=== PATIENT | female | born 1945 | race Caucasian/White ===

== ENCOUNTER → 2016-09-10 | Outpatient (CLI) | payer BC ==
[~2016-09-10] MED LIST: ATEN-173 PO; CALC500C3 PO; CALC600T9 PO; ERGO500037 PO; LEVO50TA6 PO; MULT-506 PO; SIMV20TA2 PO; VITAMIN D3 PO
== END | disposition home or self-care (01) ==
LOC: C.LAB1850 11:52
PROVIDERS: ATTEND Obstetrics & Gynecology
DX: Z80.41 Family history of malignant neoplasm of ovary (principal)

== ENCOUNTER → 2017-01-18 | Outpatient (CLI) | payer BC ==
[2017-01-18 12:44] LABS: ALT/SGPT 24 U/L (12-78); BLOOD UREA NITROGEN 13 mg/dl (7-18); BUN/CREATININE RATIO 14.5 (10-20); CARBON DIOXIDE 25 mmol/L (21-32); CHLORIDE 107 mmol/L (98-107); CHOLESTEROL 173 mg/dl (0-200); CREATININE 0.91 mg/dl (0.60-1.20); GLUCOSE 90 mg/dl (70-99); SODIUM 142 mmol/L (136-145); TRIGLYCERIDES 104 mg/dl (0-150); VERY LOW DENSITY LIPOPROT CALC 21 mg/dl
[2017-01-18 12:46] LABS: CALCIUM 9.3 mg/dl (8.5-10.1)
[2017-01-18 12:59] LABS: ALKALINE PHOSPHATASE 78 U/L (45-117); AST/SGOT 23 U/L (15-37); CHOLESTEROL/HDL RATIO 2.9; HDL CHOLESTEROL 60 mg/dl; LDL CHOLESTEROL CALCULATED 92 mg/dl
--- NOTE | 2017-01-22 11:13 | CODING QUERY MEDICAL NECESSITY ---
SUPPORTING DIAGNOSIS NEEDED A supporting diagnosis is required for the test/procedure performed on this patient in order for us to be reimbursed by the patient's insurance. Please provide a supporting diagnosis for the following test/procedure listed below next to the test name along with your signature. *If there is no additional diagnosis for this patient that would support the following test/procedure please document that below next to the test/procedure. Test(s)/Procedure(s) that require a supporting diagnosis: * VITAMIN D, 25-HYDROXY DIAGNOSIS: Provider Signature: Date: Thank you Margarita Bird [employer] Information Management Once completed, please kindly fax back to [phone] For questions please call [phone]
== END | disposition home or self-care (01) ==
LOC: C.LABPVFM 07:54
PROVIDERS: ATTEND Family Medicine
DX: I10 Essential (primary) hypertension (principal); E78.5 Hyperlipidemia, unspecified; E03.9 Hypothyroidism, unspecified; Z13.21 Encounter for screening for nutritional disorder; E55.9 Vitamin D deficiency, unspecified; M85.80 Other specified disorders of bone density and structure, unspecified site

== ENCOUNTER 2017-01-26 18:37 | Emergency (ER) | payer BC ==
[~2017-01-26] VITALS: Ht 154.9 cm; Wt 69.5 kg
[~2017-01-26 18:37] MED LIST changes: -CALC500C3 PO; -ERGO500037 PO; -VITAMIN D3 PO
[2017-01-26 18:44] VITALS: Ht 154.9 cm; Wt 69.5 kg
[2017-01-26] MEDS ORDERED: CALC500C3 PO (19:24)
[2017-01-26] MEDS ORDERED: ERGO500037 PO (19:24)
[2017-01-26] MEDS ORDERED: SODIUM CHLORIDE 0.9% 500ML 500 ML IV STA (19:31)
[2017-01-26 19:48] LABS: BASO % 0.5 %; BASO ABS # 0.04 K/uL (0-0.2); COMPLETE YES; EOS % 0.7 %; HEMATOCRIT 47.4 % (37-47); IG% 0.1 %; LYMPH % 29.8 %; LYMPH ABS # 2.58 K/uL (1.2-3.4); MEAN CELL VOLUME 91.9 fL (80-100); MEAN CORPUSCULAR HEMOGLOBIN 30.4 pg (25-34); MEAN CORPUSCULAR HGB CONC 33.1 g/dl (32-36); MEAN PLATELET VOLUME 9.9 fL (7.4-10.4); MONO % 8.4 %; NEUT % 60.5 %; PLATELET COUNT 299 K/uL (130-400); RED BLOOD COUNT 5.16 M/uL (4.2-5.4); WHITE BLOOD COUNT 8.67 K/uL (4.8-10.8)
--- NOTE | 2017-01-26 19:57 | DIAGNOSTIC IMAGING REPORT ---
CHEST ONE VIEW PORTABLE HISTORY: Atypical CHEST PAIN COMPARISON: None. FINDINGS: The lungs are clear. Cardiac silhouette is normal in size. No pleural effusions. No pneumothorax. IMPRESSION: No acute process. Electronically signed by: Don Brown M.D. 01/26/2017 7:55 PM Dictated Date/Time: 01/26/2017 7:53 PM
[2017-01-26 20:06] LABS: ALT/SGPT 26 U/L (12-78); AST/SGOT 16 U/L (15-37); BLOOD UREA NITROGEN 9 mg/dl (7-18); BUN/CREATININE RATIO 10.2 (10-20); CALCIUM 9.4 mg/dl (8.5-10.1); CARBON DIOXIDE 30 mmol/L (21-32); CHLORIDE 107 mmol/L (98-107); CREATININE 0.93 mg/dl (0.60-1.20); GLUCOSE 100 mg/dl (70-99); POTASSIUM 3.6 mmol/L (3.5-5.1); SODIUM 143 mmol/L (136-145)
[2017-01-26 20:11] LABS: ALKALINE PHOSPHATASE 94 U/L (45-117); CKMB/CK RATIO 1.1 (0-3.0)
--- NOTE | 2017-01-26 20:19 | EMERGENCY ROOM VISIT NOTE ---
History Report prepared by Meron: Bekah Evans Under the Supervision of: Dr. Shekhar Murray M.D. First contact with patient: 19:21 Chief Complaint: PALPITATIONS Stated Complaint: HEART FLUTTERING Nursing Triage Summary: Pt reports she has had "fluttering" in her chest since wednesday "I also have been rifting a lot" History of Present Illness The patient is a 71 year old female who presents to the Emergency Room with complaints of intermittent palpitations for the past 4 days. She saw her PCP last week for a routine visit and states that she was feeling well at that time. She had blood work done and it was all normal except for her Vitamin D level, which was low. She was place on Metoprolol at that time, but has not started it yet because she has not picked up her prescription. Four days ago the patient started experiencing heart palpitations that she states have been pretty continuous since then. She reports, "It feels like my heart is doing a flop." The patient denies any chest pain, shortness of breath, dizziness, and abdominal pain. Source of History: patient Onset: 4 days ago Position: chest Quality: other (palpitations) Timing: intermittent Associated Symptoms: No chest pain, No SOB, No abdominal pain Note: Pt denies dizziness. Review of Systems See HPI for pertinent positives & negatives. A total of 10 systems reviewed and were otherwise negative. Past Medical & Surgical Medical Problems: (1) Hypertension (2) Left knee injury Family History Cancer Heart disease Kidney disease Kidney stones Lung disease Social History Smoking Status: Never Smoker Smokeless Tobacco Use: No Alcohol Use: none Housing Status: lives alone Occupation Status: retired Current/Historical Medications Scheduled Atenolol (Tenormin), 25 MG PO QPM Calcium Carbonate (Tums), 2 TABS PO PRN Calcium Carbonate-Vitamin D (Calcium + D), 1 TAB PO QPM Ergocalciferol (Vitamin D 40813 Unit), 50,000 UNIT PO WK Levothyroxine Sodium (Levothyroxine Sodium), 1 TAB PO QAM Multivitamin (Multivitamin), 1 TAB PO QPM Simvastatin (Zocor), 20 MG PO QPM Allergies Coded Allergies: No Known Allergies (Unverified , 04/22/16) Physical Exam Vital Signs Date Time Temp Pulse Resp B/P (MAP) Pulse Ox O2 Delivery O2 Flow Rate FiO2 6/20/17 21:10 36.5 88 18 160/89 100 01/26/17 20:21 88 18 135/69 100 Room Air 01/26/17 19:39 72 01/26/17 19:35 Room Air 01/26/17 19:35 Room Air 01/26/17 18:44 36.5 79 18 157/91 100 Room Air Physical Exam GENERAL: Patient is a healthy-appearing well-nourished elderly female. HEAD: Normocephalic atraumatic EYES: Ocular movements intact pupils equal and react to light OROPHARYNX mucous membranes are moist no exudates present no erythema or edema present NECK: Supple no nuchal rigidity CHEST: Good equal expansion LUNGS: Clear and equal to auscultation CARDIAC: Normal S1 and S2 ABDOMEN: Soft nontender no guarding BACK: No CVA tenderness EXTREMITIES: No pain upon palpation normal muscle strength in all groups no clubbing cyanosis or edema NEURO: Patient is following commands and answering questions appropriately. Alert and oriented x3 Cranial Nerves 2-12 grossly intact Medical Decision & Procedures ER Provider Diagnostic Interpretation: Radiology results as stated below per my review and radiologist interpretation: CHEST ONE VIEW PORTABLE HISTORY: Atypical CHEST PAIN COMPARISON: None. FINDINGS: The lungs are clear. Cardiac silhouette is normal in size. No pleural effusions. No pneumothorax. IMPRESSION: No acute process. Electronically signed by: Don Brown M.D. 01/26/2017 7:55 PM Dictated Date/Time: 01/26/2017 7:53 PM Laboratory Results 01/26/17 19:35 Red Blood Count 5.16, Mean Corpuscular Volume 91.9, Mean Corpuscular Hemoglobin 30.4, Mean Corpuscular Hemoglobin Concent 33.1, Mean Platelet Volume 9.9, Neutrophils (%) (Auto) 60.5, Lymphocytes (%) (Auto) 29.8, Monocytes (%) (Auto) 8.4, Eosinophils (%) (Auto) 0.7, Basophils (%) (Auto) 0.5, Neutrophils # (Auto) 5.25, Lymphocytes # (Auto) 2.58, Monocytes # (Auto) 0.73, Eosinophils # (Auto) 0.06, Basophils # (Auto) 0.04 01/26/17 19:35 Test 01/26/17 19:35 White Blood Count 8.67 K/uL (4.8-10.8) Red Blood Count 5.16 M/uL (4.2-5.4) Hemoglobin 15.7 g/dL (12.0-16.0) Hematocrit 47.4 % (37-47) Mean Corpuscular Volume 91.9 fL (80-100) Mean Corpuscular Hemoglobin 30.4 pg (25-34) Mean Corpuscular Hemoglobin Concent 33.1 g/dl (32-36) Platelet Count 299 K/uL (130-400) Mean Platelet Volume 9.9 fL (7.4-10.4) Neutrophils (%) (Auto) 60.5 % Lymphocytes (%) (Auto) 29.8 % Monocytes (%) (Auto) 8.4 % Eosinophils (%) (Auto) 0.7 % Basophils (%) (Auto) 0.5 % Neutrophils # (Auto) 5.25 K/uL (1.4-6.5) Lymphocytes # (Auto) 2.58 K/uL (1.2-3.4) Monocytes # (Auto) 0.73 K/uL (0.11-0.59) Eosinophils # (Auto) 0.06 K/uL (0-0.5) Basophils # (Auto) 0.04 K/uL (0-0.2) RDW Standard Deviation 44.6 fL (36.4-46.3) RDW Coefficient of Variation 13.4 % (11.5-14.5) Immature Granulocyte % (Auto) 0.1 % Immature Granulocyte # (Auto) 0.01 K/uL (0.00-0.02) Anion Gap 6.0 mmol/L (3-11) Est Creatinine Clear Calc Drug Dose 50.9 ml/min Estimated GFR () 72.7 Estimated GFR (Non- 62.7 BUN/Creatinine Ratio 10.2 (10-20) Calcium Level 9.4 mg/dl (8.5-10.1) Total Bilirubin 0.5 mg/dl (0.2-1) Direct Bilirubin 0.1 mg/dl (0-0.2) Aspartate Amino Transf (AST/SGOT) 16 U/L (15-37) Alanine Aminotransferase (ALT/SGPT) 26 U/L (12-78) Alkaline Phosphatase 94 U/L (45-117) Total Creatine Kinase 95 U/L (26-192) Creatine Kinase MB 1.0 ng/ml (0.5-3.6) Creatine Kinase MB Ratio 1.1 (0-3.0) Troponin I < 0.015 ng/ml (0-0.045) Total Protein 8.1 gm/dl (6.4-8.2) Albumin 4.4 gm/dl (3.4-5.0) Lipase 108 U/L (73-393) Labs reviewed by ED physician. Medications Administered Medications (Trade) Dose Ordered Sig/Basia Route Start Time Stop Time Status Last Admin Dose Admin Sodium Chloride 500 ml @ 999 mls/hr Q31M STAT IV 01/26/17 19:31 01/26/17 20:01 DC 01/26/17 19:40 999 MLS/HR Atenolol (Tenormin Tab) 25 mg NOW STAT PO 01/26/17 19:57 01/26/17 19:58 DC 01/26/17 20:25 25 MG ECG Indication: palpitations Rate (beats per minute): 76 Rhythm: sinus rhythm Findings: PAC, no acute ischemic change ED Course 1920: Past medical records reviewed. The patient was evaluated in room C12B. A complete history and physical examination was performed. 1930: NSS 500 ml @ 999 mls/hr IV 1956: Atenolol 25 mg PO 2047: I updated the patient and her daughter on the results. 2114: I reassessed the patient at this time. She is feeling better and resting comfortably. I discussed the results and treatment plan with the patient and her family. I answered all pertaining questions that they had. They expressed understanding and verbalized agreement. The patient will be discharged home. Medical Decision Differential diagnosis: Etiologies such as premature contractions, electrolyte abnormality, cardiac dysrhythmia, thyroid dysfunction, pulmonary embolism, infection, gastrointestinal, as well as others were entertained. Medication Reconciliation: I attest that I have personally reviewed the patient' s current medication list. Blood Pressure Screening: Patient was found to have an elevated blood pressure and was referred to their primary care doctor for recheck and further treatment. This is a 71-year-old female who presents emergency department complaining of palpitations. On EKG the patient is having premature atrial complexes and I believe these are the palpitations the patient is feeling. They are corresponding to her uncomfortableness. The patient was placed on a monitor. She has normal CK-MB and troponin fraction she has a normal CBC as well as a normal renal profile. Her EKG is unchanged. 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 Patient family were in agreement with the treatment plan. Impression Primary Impression: Palpitations Scribe Attestation The scribe's documentation has been prepared under my direction and personally reviewed by me in its entirety. I confirm that the note above accurately reflects all work, treatment, procedures, and medical decision making performed by me. Departure Information Dispostion Home / Self-Care Referrals Jessi Park M.D. (PCP) Lauri Banks M.D. Forms HOME CARE DOCUMENTATION FORM, IMPORTANT VISIT INFORMATION, WORK / SCHOOL INSTRUCTIONS Patient Instructions My [facility], Premature Ventricular Contract About, Premature Ventricular Contract Tx Additional Instructions Follow up with DR Banks's office You have been examined and treated today on an emergency basis only. This is not a substitute for, or an effort to provide, complete comprehensive medical care. It is impossible to recognize and treat all injuries or illnesses in a single emergency department visit. It is therefore important that you follow up closely with Dr Park. Call as soon as possible for an appointment. Thank you for your time and consideration. I look forward to speaking with you again soon. Please don't hesitate to call us if you have any questions.
[2017-01-26 21:10] VITALS: BP 160/89; PULSE 88; TEMP 36.5; O2SAT 100
[2017-04-16] MEDS ORDERED: VITAMIN D3 PO (11:38)
== END 2017-01-26 21:11 | disposition home or self-care (01) ==
LOC: C.EDB 18:40 → C.EDC 21:11
DX: R00.2 Palpitations (principal); I10 Essential (primary) hypertension; Z87.828 Personal history of other (healed) physical injury and trauma; Z79.899 Other long term (current) drug therapy; Z80.9 Family history of malignant neoplasm, unspecified; Z82.49 Family history of ischemic heart disease and other diseases of the circulatory system; Z84.1 Family history of disorders of kidney and ureter

== ENCOUNTER → 2017-02-16 | Outpatient (CLI) | payer BC ==
[~2017-02-16] MED LIST changes: +CALC500C3 PO; +ERGO500037 PO; +VITAMIN D3 PO
--- NOTE | 2017-02-16 15:39 | MAMMOGRAPHY REPORT ---
BILATERAL DIGITAL SCREENING MAMMOGRAM WITH CAD: 02/16/2017 CLINICAL HISTORY: Routine screening examination. TECHNIQUE: Bilateral CC and MLO views were obtained. Current study was also evaluated with a Compute r Aided Detection (CAD) system. COMPARISON: Comparison is made to exams dated: 10/16/2015 mammogram, 02/16/2014 mammogram, 12/26/2012 ma mmogram, 11/18/2011 mammogram, 11/03/2010 mammogram, and 09/12/2009 mammogram - [facility]. BREAST COMPOSITION: There are scattered areas of fibroglandular density in both breasts. FINDINGS: There is a ribbon shaped metallic biopsy marker adjacent to a stable 6 mm mass in the 3:00 right breast, which appears similar dating back to at least 11/03/2010, therefore likely benign. No new suspicious mass, architectural distortion or cluster of microcalcifications is seen bilaterally. IMPRESSION: ACR BI-RADS CATEGORY 1: NEGATIVE There is no mammographic evidence of malignancy. A 1 year screening mammogram is recommended. The pa tient will receive written notification of the results. Approximately 10% of breast cancers are not detected with mammography. A negative mammographic report should not delay biopsy if a clinically suggestive mass is present. Elizabeth Baumann M.D. ay/:02/16/2017 15:04:10 Instructor Tap Dancing: Lucila PRICE(Liz)(M), letter sent: Normal 1/2 BI-RADS Code: ACR BI-RADS Category 1: Negative
== END | disposition home or self-care (01) ==
LOC: C.MAMM 14:13
PROVIDERS: ATTEND Obstetrics & Gynecology
DX: Z12.31 Encounter for screening mammogram for malignant neoplasm of breast (principal)

== ENCOUNTER 2017-08-03 17:34 | Emergency (ER) | payer BC ==
[2017-08-03] VITALS (8 sets, daily range): BP systolic 121–174; BP diastolic 66–107; PULSE 79–92; TEMP 36.5; O2SAT 98–100; Ht 165.1 cm; Wt 73.5 kg
[~2017-08-03] VITALS: Ht 165.1 cm; Wt 73.5 kg
[~2017-08-03 17:34] MED LIST changes: -CALC500C3 PO; -ERGO500037 PO
[2017-08-03] MEDS ORDERED: MoRPHine SULFATE 4 MG/ML 1 ML CARP\\VIAL IV STA (17:48)
--- NOTE | 2017-08-03 18:18 | DIAGNOSTIC IMAGING REPORT ---
R SHOULDER MIN 2 VIEWS ROUTINE CLINICAL HISTORY: 72 years-old Female presenting with RIGHT, EVAL FX VS DISLOCATION. TECHNIQUE: Frontal and crosstable lateral views of the right shoulder were obtained. COMPARISON: Chest x-ray from 01/2612/26/2016. FINDINGS: Anterior displacement of the right humeral head. A prominent fracture fragment is noted superior lateral to the humeral head. No gross deformity of the osseous glenoid. Therefore, this fracture fragment likely represents greater trochanter and is displaced from the femoral head by over 2 cm. IMPRESSION: Fracture-dislocation of the right humeral head. Anterior dislocation with fracture and significant displacement of the greater trochanter. Electronically signed by: Andrew Banks M.D. 08/03/2017 6:17 PM Dictated Date/Time: 08/03/2017 6:15 PM
[2017-08-03] MEDS ORDERED: MoRPHine SULFATE 4 MG/ML 1 ML CARP\\VIAL IV PRN (18:30)
[2017-08-03 18:49] LABS: HEMATOCRIT 42.7 % (37-47); MEAN CELL VOLUME 90.7 fL (80-100); MEAN CORPUSCULAR HGB CONC 34.2 g/dl (32-36); PLATELET COUNT 289 K/uL (130-400); RED BLOOD COUNT 4.71 M/uL (4.2-5.4); WHITE BLOOD COUNT 12.29 K/uL (4.8-10.8)
[2017-08-03 18:59] LABS: INR 0.9 (0.9-1.1); PROTHROMBIN TIME (PATIENT) 9.9 SECONDS (9.0-12.0)
[2017-08-03 19:07] LABS: BUN/CREATININE RATIO 19.4 (10-20); CALCIUM 9.5 mg/dl (8.5-10.1); CREATININE 0.91 mg/dl (0.60-1.20); POTASSIUM 3.6 mmol/L (3.5-5.1)
[2017-08-03] MEDS ORDERED: PROPOFOL IV EMULSION 10 MG/ML 20 ML VIAL IV STA (19:14)
--- NOTE | 2017-08-03 19:18 | Pre Sedation Assessment ---
Pre Sedation Assessment General Date of Sedation: Aug 03, 2017. Vital Signs Past 12 Hours Date Time Temp Pulse Resp B/P (MAP) Pulse Ox O2 Delivery O2 Flow Rate FiO2 08/03/17 18:00 36.4 86 20 169/80 95 Room Air Review Cardiovascular: regular rate, rhythm, no murmur Lungs: lungs clear, normal breath sounds Pre-Sedation Airway Assessment Smoking Status: Never Smoker Hx of Sleep Apnea: No Hx of difficult intubation: No Short Thick Neck: No Thyro-mental Distance: > 3 Finger Breadths Oral Cavity: WNL Mallampati Classification: Class I ASA Classification: Class II NPO Status Date of Last Intake of Fluids: Aug 03, 2017 Time of Last Intake of Fluids: 12:00 Date of Last Intake of Solids: Aug 03, 2017 Time of Last Intake of Solids: 12:00 Reason NPO < guidelines Emergent reduction of fracture dislocation, right shoulder, right hand dominant patient. Procedure Planning Contraindications for Sedation: None Current Medications Reviewed: Yes Notes The planned sedation has been discussed with the patient. Informed Consent was obtained. I have identified the patient, determined the appropriateness of sedation and have assessed the patient immediately prior to the procedure. All medicine(s) and interventions are by my order.
--- NOTE | 2017-08-03 19:18 | EMERGENCY ROOM VISIT NOTE ---
ED Visit Note First contact with patient: 17:40 The patient was seen and examined with Bindu Andrade PA-C. I agree with the history, physical and findings. Please see the note for disposition and details. Procedural Sedation Indication fracture dislocation of the right shoulder. Total time: 22 minutes. Written consent was obtained after the risks and benefits were explained to the patient and family, including, but not limited to aspiration, allergic reaction , breathing difficulties, cardiac complications, vomiting, pain, event recall, bleeding, and/or infection. Pre-sedation examination and paperwork completed. The patient was on 100% oxygen via NRB prior to the procedure. Continous end tidal CO2 monitoring, pulse oximetry, and cardiac monitoring were utilized. Suction, airway equipment, medications, respiratory equipment, and appropriate personnel were prepared prior to the initiation of the procedure. A time out was taken. Sedation was achieved utilizing a total of 140 mg of propofol in incremental dosing. After I observed the patient had reached the appropriate level of sedation the main procedure was performed without complication. Sedation was discontinued and the monitoring continued. The patient recovered quickly from the effects of the medication without complication or adverse event.
--- NOTE | 2017-08-03 19:18 | Post Sedation Assessment ---
Post Sedation Assessment General Date of Sedation Aug 03, 2017. Vital Signs: Vital Signs Past 12 Hours Date Time Temp Pulse Resp B/P (MAP) Pulse Ox O2 Delivery O2 Flow Rate FiO2 08/03/17 18:00 36.4 86 20 169/80 95 Room Air Post Procedure Recovery Score Activity: (2) Moves 4 extremities * Respiration: (2) Deep breath/cough Circulation: (2) +/-20% PreAnes Value Consciousness: (2) Fully Awake Oxygen Saturation: (2) > 92% On Room Air Discharge Sedation Level of Care: Phase I Post Sedation Plan On clinical assessment, the patient appears to have tolerated the sedation without complications. Patient is recovering as anticipated. The patient was fully monitored by nursing and recovered completely. I evaluated the patient multiple times. Her sedation cleared without problems. She tolerated the procedure very well. She never had any complications from the propofol sedation. No apnea occurred. No hypoxia. No hypotension. No infusion pain.
[2017-08-03] MEDS ORDERED: ONDANSETRON INJ 2 MG/ML 2 ML VIAL IV STA (19:19)
[2017-08-03] MEDS ORDERED: SODIUM CHLORIDE 0.9% 1000ML 1,000 ML IV STA (19:19)
--- NOTE | 2017-08-03 20:11 | DIAGNOSTIC IMAGING REPORT ---
R SHOULDER 1 VIEW CLINICAL HISTORY: POST REDUCTION COMPARISON: Right shoulder radiographs August 03, 2017 5:53 PM. FINDINGS: Single AP internal rotation view demonstrates anatomic alignment of the right humerus with respect to the glenoid status post reduction. Fracture of the right humeral head with involvement of the greater tuberosity is noted. Fracture alignment has significantly improved since prior exam. IMPRESSION: Anatomic alignment right glenohumeral joint status post reduction. Marked improvement in alignment of the right humeral head fracture now in near anatomic alignment. Electronically signed by: Fady Singh M.D. 08/03/2017 8:10 PM Dictated Date/Time: 08/03/2017 8:08 PM
[2017-08-03] MEDS ORDERED: HYDR-5688 PO (20:20)
--- NOTE | 2017-08-03 20:22 | EMERGENCY ROOM VISIT NOTE ---
ED Visit Note First contact with patient: 17:40 CHIEF COMPLAINT: Right shoulder injury after a fall HISTORY OF PRESENT ILLNESS: Patient is a [id number] 72-year-old white female with past medical history significant for hypertension, hypothyroidism and dyslipidemia is brought to the emergency department by ambulance for evaluation of right shoulder pain after a fall. Patient reports that she was going up the steps, when she caught her toe on the edge of the step and fell, landing directly on the right shoulder at her side. She had immediate onset of pain in the right shoulder and was unable to move the arm without significant discomfort. Patient's daughter reports that initially her arm was above her head, EMS was able to bring the arm down to the side slightly and placed her in a splint. She notes pain in the top of the lateral aspect of the right shoulder that radiates slightly down the upper arm. She describes a burning pain in the upper arm. She received fentanyl 75 g and Zofran 4 mg en route with little relief of her pain. She denies any numbness, tingling or weakness radiating down the arm or into her hands or fingers. She denies any elbow pain or wrist pain. Denies any prior history of injuries or surgery to this shoulder. She did strike her right forehead slightly on the ground, and has a small abrasion there, but she denies a generalized headache, there was no loss of consciousness, she denies any vision changes or vomiting. She denies any other injuries related to the fall. REVIEW OF SYSTEMS: Review of systems as per HPI. All other systems reviewed were negative. 10 systems reviewed. PMH: Electronic medical records are reviewed and summarized as above/below. See Problem List. SOCIAL HISTORY: Patient lives at home. Retired. Nonsmoker. PHYSICAL EXAM: Vital Signs: Reviewed nurse's notes. CONSTITUTIONAL: Patient is an uncomfortable appearing 72-year-old white female who is awake and alert and in moderate distress due to her stated complaint. HEAD: Superficial right frontal abrasion, no significant soft tissue swelling. No step-off deformity. EYES: Pupils equal, round, reactive to light and accommodation. EOMs intact without nystagmus. Sclera are anicteric. CARDIOVASCULAR: Regular rate and rhythm. Peripheral pulses easily palpable. RESPIRATORY: Breath sounds equal and clear to auscultation. INTEGUMENTARY: No lesions or rash, normal skin turgor. LYMPH: No lymphadenopathy. MUSCULOSKELETAL: Examination of the right upper extremity note a superficial area of ecchymosis over the anterior lateral aspect of the right shoulder. The patient has her arm positioned flexed at the elbow, with the shoulder is slightly abducted and externally rotated. She is tenderness on the superior lateral aspect of the shoulder, and has significant pain with any attempts at range of motion, which were deferred given the nature of the injury. Skin is intact. Elbow is nontender, she can passively be flexed and extended they're fully, has no pain with pronation or supination. Wrist is also nontender. Radial and ulnar pulses are easily palpable. Capillary refills less than 2 seconds. Customer Expert strength is intact. EMERGENCY DEPARTMENT COURSE: The patient was seen and evaluated as above. X- rays of the right shoulder were obtained and consistent with a anterior dislocation of the right humeral head with an associated greater trochanter. X- ray findings were reviewed with attending physician, and discussed the patient and her family. Dr. West with orthopedics was consulted, and he came to the emergency department, assessed the patient and performed closed reduction under conscious sedation. Please refer to his orthopedic consultation and procedure note for further information. Arm sling and swath was applied. Post reduction x-rays were obtained, and confirmed reduction of the dislocation and marked improvement of the fracture fragment position. The patient was recovered from the conscious sedation per protocol. Discharge instructions were reviewed with patient and her family at length. Sling is to remain intact at all times, she can loosen slightly for grooming, otherwise should have sponge bathe until she is seen by orthopedics. The patient rated her discomfort a 3/10 at discharge. Sling placement was verified by me and was satisfactory. Patient remained neurovascularly intact. Patient was discharged home in stable condition accompanied by her family members who were driving. Differential diagnoses entertained including clavicle fracture, AC separation, humerus fracture, shoulder dislocation, among others. Medication reconciliation: I attest that I have personally reviewed the patient' s current medication list. Blood pressure screening: Patient was found to have a slightly elevated blood pressure due to circumstances. I do not believe that the patient requires hypertension monitoring. Patient was reviewed in the [facility] Prescription Drug Monitoring Program, and there were no red flags noted. R SHOULDER MIN 2 VIEWS ROUTINE CLINICAL HISTORY: 72 years-old Female presenting with RIGHT, EVAL FX VS DISLOCATION. TECHNIQUE: Frontal and crosstable lateral views of the right shoulder were obtained. COMPARISON: Chest x-ray from 01/2612/26/2016. FINDINGS: Anterior displacement of the right humeral head. A prominent fracture fragment is noted superior lateral to the humeral head. No gross deformity of the osseous glenoid. Therefore, this fracture fragment likely represents greater trochanter and is displaced from the femoral head by over 2 cm. IMPRESSION: Fracture-dislocation of the right humeral head. Anterior dislocation with fracture and significant displacement of the greater trochanter. R SHOULDER 1 VIEW CLINICAL HISTORY: POST REDUCTION COMPARISON: Right shoulder radiographs August 03, 2017 5:53 PM. FINDINGS: Single AP internal rotation view demonstrates anatomic alignment of the right humerus with respect to the glenoid status post reduction. Fracture of the right humeral head with involvement of the greater tuberosity is noted. Fracture alignment has significantly improved since prior exam. IMPRESSION: Anatomic alignment right glenohumeral joint status post reduction. Marked improvement in alignment of the right humeral head fracture now in near anatomic alignment. Problem List Medical Problems: (1) Hyperlipidemia, Unspecified Status: Chronic (2) Hypertension Status: Chronic (3) Hypothyroidism, Unspecified Status: Chronic (4) Left knee injury Status: Resolved (5) Osteoporosis Nos Status: Chronic (6) Palpitations Status: Resolved (7) Vitamin D Deficiency, Unspecified Status: Chronic Current/Historical Medications Scheduled Atenolol (Tenormin), 25 MG PO QPM Calcium Carbonate-Vitamin D (Calcium + D), 1 TAB PO QPM Levothyroxine Sodium (Levothyroxine Sodium), 1 TAB PO QAM Multivitamin (Multivitamin), 1 TAB PO QPM Simvastatin (Zocor), 20 MG PO QPM [Vitamin D3], 1 TAB PO [id number] Scheduled PRN Hydrocodone/Acetaminophen 5MG/325MG ([place] 5MG/325MG), 1-2 TABLETS PO Q4 PRN for Pain Allergies Coded Allergies: No Known Allergies (Unverified , 04/16/17) Vital Signs Date Time Temp Pulse Resp B/P (MAP) Pulse Ox O2 Delivery O2 Flow Rate FiO2 08/03/17 20:47 88 18 170/100 99 08/03/17 20:10 83 18 160/76 99 Room Air 08/03/17 20:02 36.5 89 18 155/84 98 Room Air 08/03/17 19:54 85 16 142/82 99 Room Air 08/03/17 19:50 89 16 140/66 100 Mask 12.0 08/03/17 19:45 79 16 137/107 100 Mask 12.0 08/03/17 19:40 91 16 121/83 100 Mask 12.0 08/03/17 19:37 88 14 148/81 100 Mask 12.0 08/03/17 19:30 92 16 174/92 100 Non-Rebreather 12.0 08/03/17 19:24 85 08/03/17 18:00 36.4 86 20 169/80 95 Room Air Laboratory Results 08/03/17 18:36 08/03/17 18:36 Test 08/03/17 18:36 Red Blood Count 4.71 M/uL (4.2-5.4) Mean Corpuscular Volume 90.7 fL (80-100) Mean Corpuscular Hemoglobin 31.0 pg (25-34) Mean Corpuscular Hemoglobin Concent 34.2 g/dl (32-36) RDW Standard Deviation 43.9 fL (36.4-46.3) RDW Coefficient of Variation 13.1 % (11.5-14.5) Mean Platelet Volume 10.0 fL (7.4-10.4) Prothrombin Time 9.9 SECONDS (9.0-12.0) Prothromb Time International Ratio 0.9 (0.9-1.1) Activated Partial Thromboplast Time 24.7 SECONDS (21.0-31.0) Partial Thromboplastin Ratio 1.0 Anion Gap 8.0 mmol/L (3-11) Est Creatinine Clear Calc Drug Dose 57.8 ml/min Estimated GFR () 74.1 Estimated GFR (Non- 63.9 BUN/Creatinine Ratio 19.4 (10-20) Calcium Level 9.5 mg/dl (8.5-10.1) Total Bilirubin 0.4 mg/dl (0.2-1) Aspartate Amino Transf (AST/SGOT) 22 U/L (15-37) Alanine Aminotransferase (ALT/SGPT) 26 U/L (12-78) Alkaline Phosphatase 103 U/L (45-117) Total Protein 7.9 gm/dl (6.4-8.2) Albumin 3.9 gm/dl (3.4-5.0) Globulin 4.0 gm/dl (2.5-4.0) Albumin/Globulin Ratio 1.0 (0.9-2) Medications Administered Medications (Trade) Dose Ordered Sig/Basia Route Start Time Stop Time Status Last Admin Dose Admin Morphine Sulfate (MoRPHine SULFATE INJ) 4 mg NOW STAT IV 08/03/17 17:48 08/03/17 17:50 DC 08/03/17 17:53 4 MG Morphine Sulfate (MoRPHine SULFATE INJ) 4 mg Q15M PRN IV 08/03/17 18:30 08/17/17 18:29 08/03/17 18:53 4 MG Ondansetron HCl (Zofran Inj) 4 mg NOW STAT IV 08/03/17 19:19 08/03/17 19:20 DC 08/03/17 19:25 4 MG Sodium Chloride 1,000 ml @ 999 mls/hr Q1H1M STAT IV 08/03/17 19:19 08/03/17 20:19 DC 08/03/17 19:25 999 MLS/HR Acetaminophen/ Hydrocodone Bitart ([place] 5/325mg Home Pack) 1 homepack UD ONCE PO 08/03/17 20:45 08/03/17 20:46 DC 08/03/17 20:42 1 HOMEPACK Departure Information Impression Primary Impression: Fracture dislocation of right shoulder joint Prescriptions Hydrocodone/Acetaminophen 5MG/325MG ([place] 5MG/325MG) Tab 1-2 TABLETS PO Q4 Y for Pain, #25 TAB For Initial Treatment Prov: Bindu Andrade PA 08/03/17 Referrals Jessi Park M.D. (PCP) Tremaine Salomon, DO Patient Instructions [facility] Additional Instructions DO NOT drive, drink alcohol, operate machinery, or perform dangerous activities today. You were given medications in the ER that can affect your ability to safely function or operate a vehicle. Hydrocodone/Acetaminophen ([place]) 5/325 mg: Take 1-2 pills every four hours for breakthrough pain. Avoid alcohol, operating machinery or dangerous equipment, working on ladders or roofs, DRIVING, or situations where being under the influence may be dangerous. It is recommended to use an [id number]-[id number] stool softener such as Colace, 100mg twice daily while taking this medication to avoid constipation. Ibuprofen(Motrin, Advil) may be used for fever or pain. Use 600mg every six hours as needed. Take with food. Avoid using more than 2400mg in a 24 hour period. Do not use 2400mg per day for more than three consecutive days without physician direction. Prolonged inappropriate use can lead to stomach upset or ulcers. This medication can be taken if you need to drive, work, or perform activities which may be dangerous when taking narcotic pain medication. (AND/OR) Acetaminophen(Tylenol) may be used for fever or pain. Use 1000mg every six hours as needed. Avoid using more than 3000mg in a 24 hour period. This medication can be taken if you need to drive, work, or perform activities which may be dangerous when taking narcotic pain medication. Ice compresses for 20 minutes at a time four times daily for 2-3 days. Use the sling as instructed at all times, may loosen slightly for bathing/ grooming and dressing. Rest your injury. Continue current medications. Return to the ER immediately for any numbness, tingling, severe pain, extreme swelling in the extremity or as needed. Call [facility] tomorrow to arrange follow up for your injury.
[2017-08-03] MEDS ORDERED: NORCO 5/325MG HOME PACK PO ONE (20:45)
--- NOTE | 2017-08-04 07:06 | CONSULTATION REPORT ---
DATE OF CONSULTATION: 08/03/2017 HISTORY OF PRESENT ILLNESS: Paty is a delightful patient. She is 72 years of age. She suffered a fracture dislocation of her right shoulder. She is seen and evaluated in the Emergency Room. I was called because I was certified professional midwife, for her dislocation. She presented to the Emergency Room with an obvious deformity, right upper extremity. Neurosensory intact. Slight loss of sensation in axillary nerve. Good vascularity. X-rays demonstrated fracture and dislocation, right shoulder. Fracture of the greater tuberosity. DISPOSITION: Dr. Rock along with the team here starting IV, did some IV sedation. We were able to relocate the right shoulder. It took a significant amount of effort. We use propofol and morphine for pain control. The post-reduction film was superb. She was placed in a shoulder immobilizer, discharged home. We will see her back in the office in approximately 24 to 48 hours.
== END 2017-08-03 20:48 | disposition home or self-care (01) ==
LOC: EDBD 17:34 → C.EDC 17:35
DX: S43.014A Anterior dislocation of right humerus, initial encounter (principal); S42.201A Unspecified fracture of upper end of right humerus, initial encounter for closed fracture; W10.9XXA Fall (on) (from) unspecified stairs and steps, initial encounter; Y92.019 Unspecified place in single-family (private) house as the place of occurrence of the external cause; I10 Essential (primary) hypertension; E03.9 Hypothyroidism, unspecified; E78.5 Hyperlipidemia, unspecified; M81.0 Age-related osteoporosis without current pathological fracture; E55.9 Vitamin D deficiency, unspecified; Z79.899 Other long term (current) drug therapy

== ENCOUNTER → 2017-10-18 | Outpatient (CLI) | payer BC ==
[~2017-10-18] MED LIST changes: +HYDR-5688 PO
[2017-10-18 13:14] LABS: ALBUMIN 3.8 gm/dl (3.4-5.0); ALT/SGPT 25 U/L (12-78); AST/SGOT 17 U/L (15-37); BLOOD UREA NITROGEN 13 mg/dl (7-18); CALCIUM 9.6 mg/dl (8.5-10.1); CARBON DIOXIDE 30 mmol/L (21-32); CHOLESTEROL 195 mg/dl (0-200); CREATININE 0.87 mg/dl (0.60-1.20); GLUCOSE 101 mg/dl (70-99); POTASSIUM 3.7 mmol/L (3.5-5.1); SODIUM 139 mmol/L (136-145)
[2017-10-18 13:25] LABS: ALKALINE PHOSPHATASE 85 U/L (45-117); LDL CHOLESTEROL CALCULATED 109 mg/dl; TOTAL PROTEIN 7.6 gm/dl (6.4-8.2)
== END | disposition home or self-care (01) ==
LOC: C.LABPVFM 08:03
PROVIDERS: ATTEND Family Medicine
DX: I10 Essential (primary) hypertension (principal); E78.5 Hyperlipidemia, unspecified; E03.9 Hypothyroidism, unspecified; E55.9 Vitamin D deficiency, unspecified